=== PATIENT | female | born 1955 | race Asian ===

== ENCOUNTER 2017-05-23 00:41 | Emergency (ER) | payer MEDICAID ==
[~2017-05-23] VITALS: Ht 172.7 cm; Wt 63.5 kg
[~2017-05-23 00:41] MED LIST: ATIVAN0.5 MG ORAL; NKM
[2017-05-23 00:42] VITALS: BP 133/92
--- NOTE | 2017-05-23 01:13 | Emergency Room Report ---
History of Present Illness General Chief Complaint: Multiple Trauma/Fall Source: EMS Present Illness HPI 62-year-old female presents ED for evaluation. Per EMS patient a mechanical trip and fall at a restaurant today. Abrasion noted to left cheek. Unsure whether patient lost LOC. In c-collar. Denies any pain at this time. Denies chest pain shortness of breath. No other aggravating or relieving factors. Denies any other associated symptoms Allergies: Coded Allergies: PENICILLINS (Verified Allergy, Unknown, 08/02/09) Patient History Past Medical History: none Past Surgical History: none Pertinent Family History: none Social History: Denies: smoking, alcohol use, drug use Now: No Immunizations: UTD Reviewed Nursing Documentation: PMH: Agreed, PSxH: Agreed Nursing Documentation-PMH Past Medical History: No History, Except For History Of Psychiatric Problem: Yes Review of Systems All Other Systems: negative except mentioned in HPI Physical Exam Vital Signs Date Time Temp Pulse Resp B/P (MAP) Pulse Ox O2 Delivery O2 Flow Rate FiO2 05/23/17 00:42 208.0 86 16 133/92 97 Room Air 208.0 Sp02 EP Interpretation: reviewed, normal General Appearance: no apparent distress, alert, GCS 15, non-toxic Head: normocephalic, other - abrasion to L cheek Eyes: bilateral eye normal inspection, bilateral eye PERRL ENT: hearing grossly normal, normal pharynx, no angioedema, normal voice Neck: full range of motion, supple/symm/no masses Respiratory: chest non-tender, lungs clear, normal breath sounds, speaking full sentences Cardiovascular #1: regular rate, rhythm, no edema Cardiovascular #2: 2+ carotid (R), 2+ carotid (L), 2+ radial (R), 2+ radial (L) , 2+ dorsalis pedis (R), 2+ dorsalis pedis (L) Gastrointestinal: normal bowel sounds, non tender, soft, non-distended, no guarding, no rebound Rectal: deferred Genitourinary: normal inspection, no CVA tenderness Musculoskeletal: back normal, gait/station normal, normal range of motion, non- tender Neurologic: alert, oriented x3, responsive, motor strength/tone normal, sensory intact, speech normal Psychiatric: judgement/insight normal, memory normal, mood/affect normal, no suicidal/homicidal ideation Reflexes: 3+ bicep (R), 3+ bicep (L), 3+ tricep (R), 3+ tricep (L), 3+ knee (R) , 3+ knee (L) Skin: normal color, no rash, warm/dry, well hydrated Lymphatic: no adenopathy Medical Decision Making Diagnostic Impression: Primary Impression: Multiple injuries due to trauma ER Course Hospital Course 62-year-old female presents to ED status post fall with head injury. In c- collar Differential diagnoses include: skull fx, intracranial injury, concussion Clinical course Patient placed on stretcher. After initial history and physical I ordered CT head, Cspine and CT Facial Bones patient declined pain meds CT imaging studies negative. Discussed findings with patient. Safe for discharge with close outpatient follow-up Diagnosis - multiple injuries due to trauma Stable and discharged to home with Rx Motrin. Followup with PMD. Return to ED if symptoms recur or worsen CT/MRI/US Diagnostic Results CT/MRI/US Diagnostic Results #1: Imaging Test Ordered: CT Head Impression no acute process CT/MRI/US Diagnostic Results #2: Imaging Test Ordered: CT Cspine Impression no acute process CT/MRI/US Diagnostic Results #3: Imaging Test Ordered: CT Facial Bones Impression no acute process Last Vital Signs Date Time Temp Pulse Resp B/P (MAP) Pulse Ox O2 Delivery O2 Flow Rate FiO2 05/23/17 00:42 97.8 87 16 133/92 97 Room Air 97.9 Status: improved Disposition: HOME, SELF-CARE Condition: Stable Scripts Ibuprofen* (MOTRIN*) 600 Mg Tablet 600 MG ORAL Q8H Y for For Pain, #30 TAB 0 Refills Prov: MARK CAMARGO M.D. 05/23/17 MARK CAMARGO M.D. May 23, 2017 01:13
[2017-05-23] MEDS ORDERED: LORazepam 1mg tab ORAL ONE (01:30)
[2017-05-23] MEDS ORDERED: IBUPROFEN600 MG ORAL (04:32)
[2017-05-23 04:42] VITALS: BP 125/80
[2017-05-23 04:43] VITALS: BP 125/80
--- NOTE | 2017-05-23 09:21 | Diagnostic Imaging Report ---
Indication: Head pain status post fall Technique: Continuous helical CT scanning of the head was performed utilizing automated exposure control without intravenous contrast material. Axial and coronal reconstructions were obtained. Comparison: 05/10/2012 CT dose: Total DLP 1393 mGycm; CTDI vol 70.4 mGy Findings: There is no acute intracranial hemorrhage, mass effect or cortical edema. The ventricles, cisterns and sulci are stable. The posterior fossa and fourth ventricle are unremarkable. Sellar and suprasellar regions are grossly unremarkable. Mastoid air cells are clear. There is mild right frontal scalp swelling without skull fracture. Impression: No evidence of acute intracranial hemorrhage, mass effect or cortical edema. Mild right frontal scalp swelling without skull fracture. The CT scanner at [facility] is accredited by the [employer] and the scans are performed using protocols designed to limit radiation exposure to as low as reasonably achievable to attain images of sufficient resolution adequate for diagnostic evaluation.
--- NOTE | 2017-05-23 09:24 | Diagnostic Imaging Report ---
Indication: Facial pain status post fall Technique: CT maxillofacial was performed utilizing automated exposure control without intravenous contrast material. Axial and coronal images were generated. CT dose: Total DLP 536 mGycm; CTDI vol 28.2 mGy Comparison: None Findings: The left nasal fracture deformity is present. The mandible and orbits appear intact. Mastoid air cells are clear. There is mucoperiosteal thickening of the left maxillary sinus. Left facial and right frontal scalp swelling is noted. Impression: Left facial and right frontal scalp swelling. No underlying acute fracture. Fracture deformity of the left nasal bone may be chronic. Clinical correlation recommended. Mucoperiosteal thickening of the left maxillary sinus. The CT scanner at [facility] is accredited by the [employer] and the scans are performed using protocols designed to limit radiation exposure to as low as reasonably achievable to attain images of sufficient resolution adequate for diagnostic evaluation.
--- NOTE | 2017-05-23 09:27 | Diagnostic Imaging Report ---
Indication: Neck pain status post fall Technique: CT cervical spine was performed utilizing automated exposure control without intravenous contrast material. Axial and coronal images were generated. CT dose: Total DLP 342 mGycm; CTDI vol 13.5 mGy Comparison: None Findings: There is no acute fracture. The cervical alignment is within normal limits. Craniocervical alignment is also normal. Degenerative endplate osteophytes are seen with posterior disc osteophyte complexes of the C4/C5, C5/C6 and C6/C7 levels with central stenosis at C4/C5. Uncovertebral spurring and degenerative facet arthropathy result in multilevel bilateral neuroforaminal narrowing. Left-sided calcified cervical nodes are present. A right paratracheal calcified node is also seen. Impression: No acute fracture or cervical malalignment. Degenerative cervical spondylosis. Further evaluation recommended as indicated. Right paratracheal and cervical calcified nodes may suggest prior granulomatous disease. Clinical correlation recommended. The CT scanner at [facility] is accredited by the [employer] and the scans are performed using protocols designed to limit radiation exposure to as low as reasonably achievable to attain images of sufficient resolution adequate for diagnostic evaluation.
== END 2017-05-23 04:43 | disposition home or self-care (01) ==
LOC: EDBD 00:41 → EMR 01:20
DX: S00.81XA Abrasion of other part of head, initial encounter (principal); Z88.0 Allergy status to penicillin; M54.2 Cervicalgia; M47.812 Spondylosis without myelopathy or radiculopathy, cervical region; R51 Headache; T14.90XA Injury, unspecified, initial encounter; W01.0XXA Fall on same level from slipping, tripping and stumbling without subsequent striking against object, initial encounter; Y92.511 Restaurant or cafe as the place of occurrence of the external cause
CPT/HCPCS: 70450; 70486; 72125; 99284